=== PATIENT | male | born 1980 | race Two or more races ===

== ENCOUNTER 2024-08-14 23:40 | Emergency (ER) | payer MEDICAID, SELFPAY ==
[2024-08-14 23:58] VITALS: BP 142/86; PULSE 71; RESP 20; TEMP 36.6; O2SAT 99
--- NOTE | 2024-08-15 00:13 | PD.EDRME ---
Rapid Medical Screening Exam RME Arrival date/time: 08/14/24 23:40 44 year old male present to ED for c/o of shortness of breath I have greeted and performed a focused initial assessment of this patient. A comprehensive ED assessment and evaluation of the patient, analysis of all test results, and completion of the medical decision making process will be conducted by additional ED providers. Chief Complaint: Shortness of Breath/Dyspnea Time Seen by Provider: 08/14/24 23:56 Vital signs: Vital Signs Temperature 97.9 F 08/14/24 23:58 Pulse Rate 71 08/14/24 23:58 Respiratory Rate 20 08/14/24 23:58 Blood Pressure 142/86 H 08/14/24 23:58 Pulse Oximetry (%) 99 08/14/24 23:58 Oxygen Delivery Method Room Air 08/14/24 23:58
--- NOTE | 2024-08-15 00:14 | XR_ITS ---
Examination: PA lateral chest 2 views TECHNIQUE: Upright PA and lateral chest 2 views Exam date and time: August 15, 2024 at 0021 hours Comparison October 12, 2022 INDICATION: Shortness of breath today. FINDINGS: Suspicious for early bibasilar pneumonia. Normal heart size Patient motion on the lateral view IMPRESSION: Suspicious for early bibasilar pneumonia
[2024-08-15 00:52] LABS: Basophils # (Auto) 0.1 Thou/mm3 (0.0-0.2); Basophils % (Auto) 1 % (0-2.5); Eosinophils # (Auto) 0.1 Thou/mm3 (0.0-0.5); Eosinophils % (Auto) 1 % (0-10); Hematocrit 42.2 % (41.0-53.0); Hemoglobin 14.8 g/dL (13.5-16.0); Immature Granulocytes % (Auto) 1 % (0-0); Immature Granulocytes Auto 0.04 Thou/mm3 (0.00-0.00); Lymphocytes # (Auto) 3.7 Thou/mm3 (1.0-4.8); Lymphocytes % (Auto) 49 % (10-50); Mean Corpuscular HGB Conc 35.1 g/dl (31.0-37.0); Mean Corpuscular Volume 97 fL (80-100); Monocytes # (Auto) 0.6 Thou/mm3 (0.0-0.8); Monocytes % (Auto) 8 % (0-12); Neutrophils # (Auto) 3.1 Thou/mm3 (1.8-7.7); Neutrophils % (Auto) 41 % (37-80); Nucleated Red Blood Cell % 0 /100 WBC (0); Platelet Count 314 Thou/mm3 (140-440); RDW Standard Deviation 49.7 fL (35.1-43.9); Red Blood Count 4.35 Miln/mm3 (4.50-5.90); White Blood Count 7.6 Thou/mm3 (3.8-10.6)
[2024-08-15 00:58] LABS: Strep A Rapid Negative (Negative)
[2024-08-15 01:07] LABS: B-Type Natriuretic Peptide < 20 pg/mL (0-100)
[2024-08-15 01:12] LABS: Alanine Aminotransferase 19 U/L (10-49); Albumin, Serum 4.4 gm/dL (3.5-5.0); Albumin/Globulin Ratio 1.5 (1.2-2.2); Alkaline Phosphatase 92 U/L (46-116); Anion Gap 8 (7-16); Aspartate Amino Transferase 17 U/L (0-34); BUN/Creatinine Ratio 10 Ratio (12-20); Bilirubin,Total 0.4 mg/dL (0.3-1.2); Blood Urea Nitrogen 12 mg/dL (9-23); Calcium 9.4 mg/dL (8.3-10.6); Calcium (Corrected) 9.4 mg/dL (8.5-10.1); Carbon Dioxide 28.6 mMol/L (20.0-31.0); Chloride 105 mMol/L (98-107); Creatinine (Component) 1.2 mg/dL (0.6-1.3); Globulin 2.9 gm/dL (2.3-3.5); Glucose 89 mg/dL (74-106); Osmolality,Calculated 281 (275-295); Potassium 3.6 mMol/L (3.4-5.1); Sodium 142 mMol/L (136-145); Total Protein 7.3 gm/dL (5.7-8.2); Troponin I < 0.020 ng/mL (0.0-0.045); eGFR > 60 See Note
[2024-08-15 05:23] VITALS: BP 157/83; PULSE 68; RESP 17; TEMP 37.2; O2SAT 97
[2024-08-15 05:42] VITALS: BP 157/83; PULSE 72; RESP 18; O2SAT 100
[2024-08-15 06:00] VITALS: BP 119/83; PULSE 76; RESP 18; O2SAT 97
--- NOTE | 2024-08-15 06:38 | PD.EDSOB ---
ED SOB =RME/HPI General Chief Complaint: Shortness of Breath/Dyspnea Stated Complaint: DIFFICULTY BREATHING, PAIN IN CHEST Time Seen by Provider: 08/14/24 23:56 Arrival date/time: 08/14/24 23:40 RME / HPI RME / HPI Narrative: 08/14/24 23:40 44 year old male present to ED for c/o of shortness of breath I have greeted and performed a focused initial assessment of this patient. A comprehensive ED assessment and evaluation of the patient, analysis of all test results, and completion of the medical decision making process will be conducted by additional ED providers. DR. LI MAIN ED EVALUATION: Related Data Home Medications ?Medication ?Instructions ?Recorded ?Confirmed levetiracetam 500 mg tablet 500 mg PO BID 12/30/17 07/26/18 aripiprazole 5 mg tablet 5 mg PO QDAY 07/26/18 07/26/18 Previous Rx's ?Medication ?Instructions ?Recorded polyethylene glycol 3350 17 gram 17 g PO QDAY #30 ea 10/12/22 oral powder packet (ClearLax) Allergies Allergy/AdvReac Type Severity Reaction Status Date / Time No Known Allergies Allergy Verified 07/26/18 23:42 Course Orders Category Date Time Status Bedside COVID-19 Antigen Test NOW Care 08/15/24 06:26 Active Bedside Influenza A&B Antigen Test NOW Care 08/15/24 00:14 Completed Bedside Influenza A&B Antigen Test NOW Care 08/15/24 06:26 Active EKG (ED ONLY) *Do not use* NOW Care 08/14/24 23:59 Completed EKG (ED Only) Stat Exams 08/14/24 23:59 Ordered XR chest 2V Stat Exams 08/15/24 00:14 Taken BNP [B-Type Natriuretic Peptide] Stat Lab 08/15/24 00:42 Completed CBC Stat Lab 08/15/24 00:42 Completed CMP [Comprehensive Metabolic Panel] Stat Lab 08/15/24 00:42 Completed Lactate (Lactic Acid) Stat Lab 08/15/24 06:26 Ordered Strep A Rapid Stat Lab 08/15/24 00:21 Completed Troponin I Stat Lab 08/15/24 00:42 Completed Troponin I Stat Lab 08/15/24 06:25 Ordered UA, C/S IF [Urinalysis, C/S if Indicated] Stat Lab 08/15/24 06:24 Ordered Lidocaine 2% Viscous [Xylocaine 2% Viscous] Med 08/15/24 06:24 Discontinued 15 ml PO X1 ONE Sucralfate Susp [Carafate Susp] Med 08/15/24 06:24 Discontinued 1 gm PO X1 ONE mg Hyd/Al Hyd/Slava Susp [Maalox Susp] Med 08/15/24 06:24 Discontinued 30 ml PO X1 ONE Vital Signs Vital signs: Vital Signs Temperature 97.9 F 08/14/24 23:58 Pulse Rate 71 08/14/24 23:58 Respiratory Rate 20 08/14/24 23:58 Blood Pressure 142/86 H 08/14/24 23:58 Pulse Oximetry (%) 99 08/14/24 23:58 Oxygen Delivery Method Room Air 08/14/24 23:58 Shortness of Breath / Dyspnea Medications / Prescriptions Medication administrations:: Medication Administration History Discontinued Medications Al Hydrox/Mg Hydrox/Simethicone (Mg Hyd/Al Hyd/Slava (Maalox Reg) Susp 30 Ml Udc) 30 ml PO X1 ONE Stop: 08/15/24 06:25 Lidocaine HCl (Lidocaine Viscous 2% 15 Ml Udc) 15 ml PO X1 ONE Stop: 08/15/24 06:25 Sucralfate (Sucralfate Susp 1 Gm/10 Ml Udc) 1 gm PO X1 ONE Stop: 08/15/24 06:25 Discharge Plan Prescriptions/Referrals Prescriptions/Med Rec: No Action aripiprazole 5 mg Tablet 5 mg PO QDAY levetiracetam 500 mg Tablet 500 mg PO BID polyethylene glycol 3350 [ClearLax] 17 gram powder in packet 17 g PO QDAY Qty: 30 0RF Referrals: No Primary/Family,Physician [Primary Care Provider] - In 1 week Patient/Caregiver Discharge Instructions Print Language: [place]
--- NOTE | 2024-08-15 06:39 | PD.EDABDPN ---
ED Abdominal Pain RME/HPI General Chief Complaint: Shortness of Breath/Dyspnea Stated complaint: DIFFICULTY BREATHING, PAIN IN CHEST Time seen by provider: 08/14/24 23:56 Arrival date/time: 08/14/24 23:40 RME / HPI RME / HPI narrative: 08/14/24 23:40 44 year old male present to ED for c/o of shortness of breath I have greeted and performed a focused initial assessment of this patient. A comprehensive ED assessment and evaluation of the patient, analysis of all test results, and completion of the medical decision making process will be conducted by additional ED providers. DR. CARDENAS MAIN ED EVALUATION: 44 year old male with past medical history significant for Down syndrome c/o left upper quadrant abdominal pain. Related Data Home Medications ?Medication ?Instructions ?Recorded ?Confirmed levetiracetam 500 mg tablet 500 mg PO BID 12/30/17 07/26/18 aripiprazole 5 mg tablet 5 mg PO QDAY 07/26/18 07/26/18 Previous Rx's ?Medication ?Instructions ?Recorded polyethylene glycol 3350 17 gram 17 g PO QDAY #30 ea 10/12/22 oral powder packet (ClearLax) Allergies Allergy/AdvReac Type Severity Reaction Status Date / Time No Known Allergies Allergy Verified 07/26/18 23:42 Review of Systems Review of Systems Systems Reviewed: All systems reviewed, normal except as documented Past Medical History Past Medical History NEUROLOGIC: Positive Seizures and Epilepsy OTHER HISTORY: Positive Down Syndrome Social History SMOKING STATUS: Never smoker SUBSTANCE USE: does not use ALCOHOL: Never ED Exam Narrative Physical exam: GENERAL APPEARANCE: alert and oriented x 4, well-developed, well-nourished, no acute distress VITALS: All vitals were reviewed and the pulse ox is 99% on room air, which is normal according to my interpretation. HEENT: Normocephalic, atraumatic; pupils equal, round, reactive to light; EOMI; mucous membranes pink, moist; oropharynx clear NECK: Supple LUNGS: CTABL; no wheezes, no rales, no rhonchi HEART: Regular rate, regular rhythm; normal S1, S2; no murmurs ABDOMEN: non distended; normal BS; soft, no tenderness, no guarding, no rebound; no masses, no organomegaly, no hernia BACK: no CVA tenderness EXTREMITIES: atraumatic; no edema NEUROLOGIC: awake; alert and oriented x4; cranial nerves II-XII grossly intact; no focal sensory or motor deficits PSYCHIATRIC: appropriate mood and affect SKIN: warm, dry, normal color; no rashes Course Quality Measures none Orders Category Date Time Status Bedside COVID-19 Antigen Test NOW Care 08/15/24 06:26 Completed Bedside Influenza A&B Antigen Test NOW Care 08/15/24 00:14 Completed Bedside Influenza A&B Antigen Test NOW Care 08/15/24 06:26 Completed EKG (ED ONLY) *Do not use* NOW Care 08/14/24 23:59 Completed EKG (ED Only) Stat Exams 08/14/24 23:59 Ordered XR abdomen flat and uprght Stat Exams 08/15/24 09:45 Completed XR chest 2V Stat Exams 08/15/24 00:14 Completed BNP [B-Type Natriuretic Peptide] Stat Lab 08/15/24 00:42 Completed CBC Stat Lab 08/15/24 00:42 Completed CMP [Comprehensive Metabolic Panel] Stat Lab 08/15/24 00:42 Completed Lactate (Lactic Acid) Stat Lab 08/15/24 06:53 Completed Strep A Rapid Stat Lab 08/15/24 00:21 Completed Troponin I Stat Lab 08/15/24 00:42 Completed Troponin I Stat Lab 08/15/24 06:53 Completed UA, C/S IF [Urinalysis, C/S if Indicated] Stat Lab 08/15/24 09:36 Completed HYDROcodone*/APAP 5/325 [Stryker 5/325] Med 08/15/24 07:36 Discontinued 1 tab PO X1 ONE Lidocaine 2% Viscous [Xylocaine 2% Viscous] Med 08/15/24 06:24 Discontinued 15 ml PO X1 ONE Sucralfate Susp [Carafate Susp] Med 08/15/24 06:24 Discontinued 1 gm PO X1 ONE mg Hyd/Al Hyd/Slava Susp [Maalox Susp] Med 08/15/24 06:24 Discontinued 30 ml PO X1 ONE Vital Signs Vital signs: Vital Signs Temperature 97.9 F 08/14/24 23:58 Pulse Rate 71 08/14/24 23:58 Respiratory Rate 20 08/14/24 23:58 Blood Pressure 142/86 H 08/14/24 23:58 Pulse Oximetry (%) 99 08/14/24 23:58 Oxygen Delivery Method Room Air 08/14/24 23:58 Abdominal Pain MDM MDM Narrative MDM Narrative:: I, Loli Call, vikram scribing for and in the presence of Dr. Cardenas. Patient data External records reviewed:: [facility] previous records (Reviewed last ED visit dated 10/12/22, discharged with the following: Abdominal pain) Clinical information provided by:: patient Social determinants that could affect healthcare access:: none Patient has the following chronic illnesses:: Down syndrome, seizures, status post tonsillectomy, status post left foot surgery How is presenting disease/condition affected by chronic disease/condition?: uneffected by Evaluation data The following diagnostics were reviewed and interpreted by me:: lab results, radiology exam(s) and EKG tracing(s) (EKG#1: EKG at 0001 hours. Interpreted by me: sinus rhythm, rate 78, no acute ischemic changes) Lab and/or radiology exams considered but not ordered:: none Interpretation Summary: Procedure(s): XR abdomen flat and uprght Accession Number(s): [id number] cc: Luciano Simon MD; NO PRIMARY/FAMILY,PHYSICIAN; Temi Cardenas MD~ Examination: Abdomen 2 views TECHNIQUE: AP upright AP supine abdomen 2 views Exam date and time: August 15, 2024 0958 hours INDICATIONS: Onset abdominal pain today FINDINGS: Mild small bowel ileus No obstruction No free air The osseous structures are intact with mild narrowing hip joints IMPRESSION: Nonobstructive bowel gas pattern Dictated By: Luciano Simon MD Procedure(s): XR chest 2V Accession Number(s): [id number] cc: Luciano Simon MD; NO PRIMARY/FAMILY,PHYSICIAN; Richi Cordero PA-C~ Examination: PA lateral chest 2 views TECHNIQUE: Upright PA and lateral chest 2 views Exam date and time: August 15, 2024 at 0021 hours Comparison October 12, 2022 INDICATION: Shortness of breath today. FINDINGS: Suspicious for early bibasilar pneumonia. Normal heart size Patient motion on the lateral view IMPRESSION: Suspicious for early bibasilar pneumonia Dictated By: Luciano Simon MD Medications / Prescriptions Medications or Prescriptions considered but not ordered:: none Medication administrations:: Medication Administration History Discontinued Medications Hydrocodone Bitart/Acetaminophen (Hydrocodone/Apap 5/325 Tablet) 1 tab PO X1 ONE Stop: 08/15/24 07:37 Last Admin: 08/15/24 07:46 Dose: 1 tab Documented By: DB Al Hydrox/Mg Hydrox/Simethicone (Mg Hyd/Al Hyd/Slava (Maalox Reg) Susp 30 Ml Udc) 30 ml PO X1 ONE Stop: 08/15/24 06:25 Last Admin: 08/15/24 06:54 Dose: 30 ml Documented By: LB Lidocaine HCl (Lidocaine Viscous 2% 15 Ml Udc) 15 ml PO X1 ONE Stop: 08/15/24 06:25 Last Admin: 08/15/24 06:54 Dose: 15 ml Documented By: LB Sucralfate (Sucralfate Susp 1 Gm/10 Ml Udc) 1 gm PO X1 ONE Stop: 08/15/24 06:25 Last Admin: 08/15/24 08:01 Dose: 1 gm Documented By: DB see above Consultations Consultation(s) initiated? (list below): No Diagnosis Differential diagnosis abdominal pain: abdominal pain and other (Abdominal pain, gastritis) Most likely diagnosis given after review of the tests above:: Abdominal pain Gastritis Admission Indicated Admission indicated?: not indicated Admission Request Was there a request for admission?: No Disposition Plan Disposition Plan: Discharge Discharge Attestation Discharge Attestation: The patient and all family members were given an opportunity to ask questions and understood the discharge instructions. Discharge instructions specifically effects, indications for sooner follow up or return to the emergency department, and the expected course of current diagnosis. Patient condition: Stable Discharge Plan Plan Patient Disposition: HOME (Self Care) Prescriptions/Referrals Prescriptions/Med Rec: No Action aripiprazole 5 mg Tablet 5 mg PO QDAY levetiracetam 500 mg Tablet 500 mg PO BID polyethylene glycol 3350 [ClearLax] 17 gram powder in packet 17 g PO QDAY Qty: 30 0RF Referrals: No Primary/Family,Physician [Primary Care Provider] - In 1 week Problem List Clinical Impression: Abdominal pain, Gastritis Patient/Caregiver Discharge Instructions Education Materials: ED Gastritis (Adult) Print Language: [place] Stand Alone Forms: Micaela Award Info., Patient Portal Info Letter
[2024-08-15] MEDS: LIDOCAINE VISCOUS 2% 15 ML UDC PO (06:54)
[2024-08-15] MEDS: MG HYD/AL HYD/SIME (Maalox Reg) SUSP 30 ML UDC PO (06:54)
[2024-08-15 07:03] LABS: Lactate (Lactic Acid) 1.8 mMol/L (0.4-2.0)
[2024-08-15 07:40] LABS: Troponin I < 0.020 ng/mL (0.0-0.045)
[2024-08-15 07:45] VITALS: BP 115/81; PULSE 83; RESP 15; TEMP 37.2; O2SAT 96
[2024-08-15] MEDS: HYDROcodone/APAP 5/325 TABLET 1 TAB PO (07:46)
[2024-08-15] MEDS: SUCRALFATE SUSP 1 GM/10 ML UDC PO (08:01)
[2024-08-15 09:44] LABS: Collection Type, Urine Clean Catch; Squamous Epithelial Cell,Urine 0 /hpf (0-5)
--- NOTE | 2024-08-15 09:45 | XR_ITS ---
Examination: Abdomen 2 views TECHNIQUE: AP upright AP supine abdomen 2 views Exam date and time: August 15, 2024 0958 hours INDICATIONS: Onset abdominal pain today FINDINGS: Mild small bowel ileus No obstruction No free air The osseous structures are intact with mild narrowing hip joints IMPRESSION: Nonobstructive bowel gas pattern
[2024-08-15 09:57] LABS: Bilirubin,Urine Negative (Negative); Blood,Urine Negative (Negative); Clarity,Urine Clear (Clear/Hazy); Color,Urine Colorless (Lt Yel-Yel); Culture Indicated,Urine Not Indicated; Glucose, Urine Negative (Negative); Ketones,Urine Negative (Negative); Leukocyte Esterase,Urine Negative (Negative); Nitrite,Urine Negative (Negative); PH,Urine 6.5 (5.0-7.0); Protein,Urine Negative (Neg - Trace); RBC,Urine < 1 /hpf (0-3); Specific Gravity,Urine 1.012 (1.001-1.035); Urobilinogen,Urine Negative mg/dL (0.0-1.0); WBC,Urine 2 /hpf (0-5)
[2024-08-15 10:09] VITALS: BP 123/88; PULSE 86; RESP 17; TEMP 36.8; O2SAT 95
[2024-08-15 11:15] VITALS: BP 122/84; PULSE 74; RESP 16; TEMP 36.7; O2SAT 99
== END 2024-08-15 11:16 | disposition home or self-care (01) ==
PROVIDERS: Physician Assistant; Emergency Provider Emergency Medicine
DX: K29.70 Gastritis, unspecified, without bleeding (principal); Q90.9 Down syndrome, unspecified
CPT/HCPCS: 36415; 71046; 74019; 80053; 81001; 83605; 83880; 84484; 85025; 87400; 87651; 87811; 93005; 99283; J3490; A9270